=== PATIENT | male | born 1950 | race Caucasian/White ===

== ENCOUNTER 2020-06-09 16:16 | Emergency (ER) | payer OTHER ==
[~2020-06-09] VITALS: Ht 165.1 cm; Wt 77.0 kg
[2020-06-09 16:18] VITALS: BP 103/76
== END 2020-06-09 19:10 | disposition left against medical advice (07) ==
LOC: ER 16:16 → EDBD 16:16 → ER 19:10
DX: U07.1 COVID-19 (principal); R06.03 Acute respiratory distress; Z53.21 Procedure and treatment not carried out due to patient leaving prior to being seen by health care provider